=== PATIENT | female | born 1940 | race Caucasian/White ===

== ENCOUNTER 2019-10-10 13:03 | Emergency (ER) | payer MEDICARE, BC ==
[~2019-10-10] VITALS: Ht 172.7 cm; Wt 80.0 kg
[~2019-10-10 13:03] MED LIST: ASPI81TA52 PO; CIPR-260 PO; DULO-31 PO; FLUO20CA39 PO; GLAT40SY IM; GLIP5TAB13 PO; HYDR-3972 PO; LEVO200T8 PO; METF500T PO; SOLI10TA2 PO; TIZA4TAB5 PO
[2019-10-10] MEDS ORDERED: normal saline 1000ml 1,000 ML IV ONE (14:54)
[2019-10-10 15:49] LABS: BASOPHILS % (AUTO) 0.2 % (0-1); EOSINOPHILS # (AUTO) 0.1 X10'3 (0-0.9); EOSINOPHILS % (AUTO) 0.5 % (0-6); HEMATOCRIT 32.9 % (35.0-45.0); HEMOGLOBIN 10.9 g/dl (12.0-16.0); LYMPHOCYTES # (AUTO) 0.8 X10'3 (1.1-4.8); LYMPHOCYTES % (AUTO) 6.5 % (21-51); MEAN CORPUSCULAR HEMOGLOBIN 27.3 PG (27.0-31.0); MEAN CORPUSCULAR HGB CONC 33.2 g/dL (33.0-36.5); MEAN CORPUSCULAR VOLUME 82.4 FL (78-98); MEAN PLATELET VOLUME 7.1 FL (7.4-10.4); MONOCYTES # (AUTO) 0.9 X10'3 (0-0.9); NEUTROPHILS # (AUTO) 10.5 X10'3 (1.8-7.7); NEUTROPHILS % (AUTO) 85.8 % (42-75); PLATELET COUNT 189 X10'3 (140-440); RED BLOOD COUNT 3.99 X10'6 (4.20-5.60); RED CELL DISTRIBUTION WIDTH 14.9 % (11.5-14.5); WHITE BLOOD COUNT 12.3 X10'3 (4.5-11.0)
[2019-10-10 16:02] LABS: PARTIAL THROMBOPLASTIN TIME 31 SECONDS (22-32)
[2019-10-10 16:05] LABS: ALANINE AMINOTRANSFERASE 17 U/L (12-78); ALBUMIN 3.4 G/DL (3.4-5.0); ALBUMIN/GLOBULIN RATIO 0.8 (1.1-1.5); ALKALINE PHOSPHATASE 75 IU/L (46-116); ANION GAP 7 (8-16); ASPARTATE AMINO TRANSFERASE 26 U/L (10-37); BILIRUBIN,TOTAL 0.4 MG/DL (0.1-1.0); BLOOD UREA NITROGEN 17 MG/DL (7-18); BUN/CREATININE RATIO 19.8 (6.6-38.0); CALCIUM 9.6 MG/DL (8.5-10.1); CHLORIDE 101 MMOL/L (99-107); CREATININE 0.86 MG/DL (0.40-0.90); GLUCOSE 75 MG/DL (70-104); MAGNESIUM 1.9 MG/DL (1.5-2.4); POTASSIUM 3.8 MMOL/L (3.5-5.1); SODIUM 137 MMOL/L (135-145); TOTAL CARBON DIOXIDE 28.9 MMOL/L (24-32); TOTAL PROTEIN 7.5 G/DL (6.4-8.2); eGFR 63 ML/MIN
--- NOTE | 2019-10-10 16:48 | NUR ---
pt was sating in the 70's. placed on 2L NC sat 98%.
[2019-10-10] MEDS ORDERED: CEPH-571 PO (17:04)
[2019-10-10] MEDS ORDERED: normal saline 1000ML IV soln IVB ONE (17:05)
[2019-10-10] MEDS ORDERED: CefTRIAXone 2gm/D5W 50ml 50 ML IV ONE (17:05)
[2019-10-10 17:42] VITALS: BP 132/54
== END 2019-10-10 17:57 | disposition home or self-care (01) ==
LOC: ER 13:04
DX: J18.9 Pneumonia, unspecified organism (principal); R53.1 Weakness; R11.2 Nausea with vomiting, unspecified; G35 Multiple sclerosis; Z79.82 Long term (current) use of aspirin; Z79.899 Other long term (current) drug therapy
CPT/HCPCS: 36415; 71045; 80053; 83605; 83735; 84484; 85025; 85610; 85730; 87040; 93005; 96361; 96365; 99284; J0696; J7030